=== PATIENT | male | born 1965 | race Caucasian/White ===

== ENCOUNTER 2023-05-20 00:01 | Emergency (ER) | payer MEDICAID ==
[2023-05-20 00:43] VITALS: PULSE 110
[2023-05-20] MEDS ORDERED: P20 PO (19:50)
== END 2023-05-20 12:45 ==
LOC: ER 00:01
DX: Z53.21 Procedure and treatment not carried out due to patient leaving prior to being seen by health care provider (principal)

== ENCOUNTER 2023-05-20 15:20 | Emergency (ER) | payer MEDICAID ==
[~2023-05-20] VITALS: Ht 167.6 cm; Wt 80.0 kg
[2023-05-20 15:21] VITALS: BP 138/90; PULSE 100; RESP 18; TEMP 97; O2SAT 99
[2023-05-20] MEDS ORDERED: P20 PO (19:50)
== END 2023-05-20 20:24 | disposition home or self-care (01) ==
LOC: ER 15:20
DX: M79.604 Pain in right leg (principal); F41.9 Anxiety disorder, unspecified; F15.10 Other stimulant abuse, uncomplicated
CPT/HCPCS: 93971; 99284